=== PATIENT | female | born 1995 | race Two or more races ===

== ENCOUNTER 2023-07-26 11:06 | Emergency (ER) | payer MEDICAID ==
[~2023-07-26] VITALS: Ht 162.6 cm; Wt 128.4 kg
[2023-07-26 12:06] VITALS: BP 150/78; PULSE 88; RESP 16; TEMP 98; O2SAT 98
[2023-07-26] MEDS ORDERED: AMOX875T3 PO (12:10)
[2023-07-26] MEDS ORDERED: IBUP-1456 PO (12:10)
== END 2023-07-26 12:13 | disposition home or self-care (01) ==
LOC: ER 11:06
DX: H66.92 Otitis media, unspecified, left ear (principal)

== ENCOUNTER 2024-08-24 08:11 | Emergency (ER) | payer MEDICAID ==
[~2024-08-24] VITALS: Ht 162.6 cm; Wt 60.9 kg
[~2024-08-24 08:11] MED LIST: AMOX875T3 PO; IBUP-1456 PO
--- NOTE | 2024-08-24 08:45 | ED.PDOC ---
Musculoskeletal HPI Comments 28 year old female with a past medical history of frequent UTIs presents to the ED with a chief compliant of bilateral leg pain onset 3 weeks. Patient states she has been experiencing intermittent bilateral leg cramping sensation. She noticed cramping is mild, lasts for a few seconds. Patient also notes dysuria x 1 day, took AZO. No other symptoms or modifying factors present at this time. Denies CP/SOB Denies fall injury trauma Denies numbness/tingling Denies headache nausea vomiting diarrhea Denies fever chills Denies hematuria abdominal pain Denies taking blood thinners Chief Complaint: Lower Extremity Time Seen by MD: 08:30 Primary Care Provider: UNKNOWN Reviewed Notes: Nurses Notes, Medications, Allergies Allergies: Coded Allergies: NO KNOWN ALLERGIES (Unverified , 07/26/23) Home Meds Active Scripts Ibuprofen (Ibuprofen) 800 Mg Tab, 1 TAB PO TID, #20 TAB Prov:MIRTA REYNOSO 07/26/23 Amoxicillin Trihydrate (Amoxicillin) 875 Mg Tab, 1 TAB PO BID, #20 TAB Prov:MIRTA REYNOSO 07/26/23 Information Source: Patient Mode of Arrival: Ambulatory Location: Bilateral Extremity Location: Leg Timing: Weeks Prehospital treatment: None Severity: Moderate Able to Move Extremity: Yes Bear Weight: Fully Pain: Moderate Past Medical History PAST MEDICAL HISTORY: UTI'S Surgical History: Denies all surgeries POSTAL DELIVERY OFFICER History: No Pertinent POSTAL DELIVERY OFFICER History Family History Family History: Reviewed,noncontributory to illness Social History Smoker: Non-Smoker Alcohol: Denies ETOH Use Drugs: Denies Drug Use Lives In: Home All Other Systems: Reviewed and Negative (as per HPI) Physical Exam General Appearance: Normal HEENT: Normal ENT Inspection, Pharynx Normal, TMs Normal Neck: Full Range of Motion, Non-Tender, Normal, Normal Inspection Respiratory: Chest Non-Tender, Lungs Clear, No Accessory Muscle Use, No Respiratory Distress, Normal Breath Sounds Cardiovascular: No Edema, No JVD, No Murmur, No Gallop, Normal Peripheral Pulses, Regular Rate/Rhythm Breast Exam: Deferred Gastrointestinal: No Organomegaly, Non Tender, No Pulsatile Mass, Normal Bowel Sounds, Soft, Other (CVA tenderness negative bilaterally) Genitalia: Deferred Pelvic: Deferred Rectal: Deferred Extremities: No calf tenderness, Normal capillary refill, No pedal edema Musculoskeletal : Location: Bilateral Extremity Location: Leg (no erythema, no edema. full ROM, nueral vascular intact. no TTP, no STS) Apperance: Normal Neurologic: Alert, pantograph transferrer II-XII nml as Tested, No Motor Deficits, Normal Affect, Normal Mood, No Sensory Deficits Cerebellar Function: Normal Reflexes: Normal Skin: Dry, Normal Color, Warm Lymphatic: No Adenopathy Was a procedure done? Was a procedure done?: No Differential Diagnosis EXT Differential Diagnosis: Other X-Ray, Labs, Meds, VS Vital Signs Date Time Temp Pulse Resp B/P (MAP) Pulse Ox O2 Delivery O2 Flow Rate FiO2 08/24/24 09:34 98.6 80 18 139/88 (105) 98 98.6 08/24/24 09:34 80 18 98 Room Air 08/24/24 08:20 99.2 86 18 165/113 (130) 97 99.2 Lab Test 08/24/24 09:40 08/24/24 08:43 Range/Units Urine Color Yellow Yellow Urine Clarity Clear Clear Urine pH 7.5 5.0-9.0 Urine Specific [place] 1.013 1.001-1.035 Urine Protein Negative Negative Urine Ketones Negative Negative Urine Blood 2+ H Negative /uL Urine Nitrite Negative Negative Urine Bilirubin Negative Negative Urine Urobilinogen Normal Negative mg/dL Urine Leukocyte Esterase Negative Negative /uL Urine RBC 3 0 - 4 /hpf Urine Microscopic WBC 2 0-5 /HPF Urine Squamous Epithelial Cells Few <5 /hpf Urine Bacteria None seen None Seen /hpf Urine Glucose Normal Normal mg/dL Urine Test Negative Negative White Blood Count 7.3 4.4-10.8 10^3/uL Red Blood Count 5.44 H 4.0-5.20 10^6/uL Hemoglobin 13.3 12.2-16.2 g/dL Hematocrit 41.3 36.0-46.0 % Mean Corpuscular Volume 76.0 L 80.0-100.0 fL Mean Corpuscular Hemoglobin 24.5 L 28.0-32.0 pg Mean Corpuscular Hemoglobin Concent 32.2 32.0-36.0 g/dL Red Cell Distribution Width 18.6 H 11.8-14.3 % Platelet Count 295 140-450 10^3/uL Mean Platelet Volume 8.7 6.9-10.8 fL Neutrophils (%) (Auto) 67.6 37.0-80.0 % Lymphocytes (%) (Auto) 23.2 10.0-50.0 % Monocytes (%) (Auto) 6.1 0.0-12.0 % Eosinophils (%) (Auto) 2.6 0.0-7.0 % Basophils (%) (Auto) 0.5 0.0-2.0 % Neutrophils # (Auto) 4.9 1.6-8.6 10 ^3/uL Lymphocytes # (Auto) 1.7 0.4-5.4 10 ^3/uL Monocytes # (Auto) 0.4 0-1.3 10 ^3/uL Eosinophils # (Auto) 0.2 0-0.8 10 ^3/uL Basophils # (Auto) 0 0-0.2 10 ^3/uL Nucleated Red Blood Cells 0.1 % Sodium Level 141 136-145 mmol/L Potassium Level 3.4 L 3.5-5.1 mmol/L Chloride Level 106 98-107 mmol/L Carbon Dioxide Level 26 20-31 mmol/L Anion Gap 9 5-15 Blood Urea Nitrogen 10 9-23 mg/dL Creatinine 0.74 0.550-1.02 mg/dL Glomerular Filtration Rate Calc 112 >90 mL/min BUN/Creatinine Ratio 13.5 10.0-20.0 Serum Glucose 103 74-106 mg/dL Calcium Level 9.8 8.7-10.4 mg/dL Magnesium Level 1.9 1.6-2.6 mg/dL X-Ray, Labs, Meds, VS Comment 28 year old female with a past medical history of frequent UTIs presents to the ED with a chief compliant of bilateral leg pain onset 3 weeks. Patient arrives alert and oriented, ABC's intact, afebrile, vital signs stable, saturating well in room air labs were ordered. CBC was ordered to exclude anemia, blood loss, or infection. BMP was ordered to exclude electrolyte abnormalities, renal failure, dehydration, hyperglycemia Urinalysis was ordered to rule out UTI or hematuria. PREGUA Magnesium Labs in the ED were reassuring. K 3.4, not a significant finding. Patient is stable for discharge at this time. External notes reviewed. Test results and diagnostic imaging interpreted. All diagnostic findings, discharge care, education and instructions provided Follow-up with PCP in 2 to 3 days Patient verbalized understanding and agreed to treatment plan Vital signs stable, afebrile, no acute distress noted Patient ambulatory with strong steady gait Advised to return precautions for any new or worsening symptoms, return to ER immediately for re-evaluation Patient is aware that the purpose of this visit was for an acute medical emerge ncy requiring emergent stabilization. Chronic conditions, including malignancies have not been ruled out. Patient is instructed to follow up with PCP as directed and discharge instructions for continued care and workup. If unable to arrange follow-up, patient is to return to the emergency department for reassessment. Patient (parent or legal guardian if applicable) was given verbal and written discharge instructions and acknowledges understanding. Additional MDM Review of External, Non-ED records: External records reviewed. Discussion with independent historian (EMS, family) history obtained from the patient/parents (if applicable) at bedside Chronic conditions affecting care: None Social determinants of health affecting care: None Consideration of admission (observation or admission): I considered escalation of care to admission for this patient, however given the reassuring workup, the patient is safe for outpatient management. Time of 1ST Reevaluation: 09:00 Reevaluation 1ST: Improved Patient Education/Counseling: Diagnosis, Treatment Family Education/Counseling: No Family Present Departure 1 Departure Time of Disposition: 10:15 Impression: Primary Impression: Leg cramps Additional Impression: Dysuria Disposition: 01 HOME / SELF CARE / HOMELESS Condition: Stable Discharged With: Self Critical Care Note Critical Care Time?: No Stability Stability form required: No Heart Score Heart Score: Heart Score Response (Comments) Value History N/A 0 EKG N/A 0 Age N/A 0 Risk Factors N/A 0 Troponin N/A 0 Total 0 I personally scribed for [employer] ([email or web address]) on 08/24/24 at 08:45. Electronically submitted by Bella Livingston ([email or web address]). I personally scribed for [employer] ([email or web address]) on 08/24/24 at 09:06. Electronically submitted by Bella Livingston ([email or web address]). I personally scribed for [employer] ([email or web address]) on 08/24/24 at 09:36. Electronically submitted by Bella Livingston ([email or web address]). I personally scribed for [employer] ([email or web address]) on 08/24/24 at 10:17. Electronically submitted by Bella Livingston ([email or web address]). MARCO CLEMENTE NP Aug 24, 2024 08:45
[2024-08-24 08:52] LABS: Hematocrit 41.3 % (36.0-46.0); Hemoglobin 13.3 g/dL (12.2-16.2); Mean Corpuscular Hemoglobin 24.5 pg (28.0-32.0); Mean Corpuscular Volume 76.0 fL (80.0-100.0); Nucleated Red Blood Cells % 0.1 %
[2024-08-24 09:01] LABS: Chloride 106 mmol/L (98-107); Sodium 141 mmol/L (136-145)
[2024-08-24 09:02] LABS: Anion Gap 9 (5-15); Carbon Dioxide 26 mmol/L (20-31)
[2024-08-24 09:03] LABS: Calcium 9.8 mg/dL (8.7-10.4)
[2024-08-24 09:07] LABS: BUN/Creatinine Ratio 13.5 (10.0-20.0); Blood Urea Nitrogen 10 mg/dL (9-23); Glucose 103 mg/dL (74-106)
[2024-08-24 09:08] LABS: Magnesium 1.9 mg/dL (1.6-2.6); Potassium 3.4 mmol/L (3.5-5.1)
[2024-08-24 09:34] VITALS: BP 139/88; PULSE 80; RESP 18; TEMP 98.6; O2SAT 98
[2024-08-24 10:02] LABS: Urine Protein, UAD Negative (Negative)
== END 2024-08-24 10:23 | disposition home or self-care (01) ==
LOC: ER 08:11
DX: M79.604 Pain in right leg (principal); M79.605 Pain in left leg; R30.0 Dysuria; Z79.1 Long term (current) use of non-steroidal anti-inflammatories (NSAID); Z79.899 Other long term (current) drug therapy
CPT/HCPCS: 36415; 80048; 81001; 81025; 83735; 85025